=== PATIENT | male | born 1965 | race American Indian/Alaskan Native ===

== ENCOUNTER 2017-09-21 11:54 | Emergency (ER) | payer SELFPAY ==
--- NOTE | 2017-09-21 14:09 | Emergency Department Report ---
ED General Adult HPI - General Chief complaint: High BP Stated complaint: HIGH BP Time Seen by Provider: 09/21/17 14:03 Source: patient Mode of arrival: Ambulatory Limitations: No Limitations - History of Present Illness Initial comments: Patient is a 52-year-old black male past medical history hypertension is been off his meds for approximately 2 months stating he has some mild dizziness this morning he went to a fire station and his blood pressure was 180/102. Patient denies any chest pain shortness of breath or focal neurological complaints at this time. Patient on arrival here in emergency department blood pressure 162/ 104. - Related Data Previous Rx's Medication Instructions Recorded Last Taken Type Lisinopril [Zestril] 10 mg PO DAILY #30 tablet 09/21/17 Unknown Rx Allergies Allergy/AdvReac Type Severity Reaction Status Date / Time No Known Allergies Allergy Unverified 09/21/17 12:00 ED Review of Systems ROS: Stated complaint: HIGH BP Other details as noted in HPI Comment: All other systems reviewed and negative ED Past Medical Hx - Past Medical History Hx Hypertension: Yes - Surgical History Past Surgical History?: No - Social History Smoking Status: Current Every Day Smoker Substance Use Type: None - Medications Home Medications: Home Medications Medication Instructions Recorded Confirmed Last Taken Type Lisinopril [Zestril] 10 mg PO DAILY #30 tablet 09/21/17 Unknown Rx ED Physical Exam - General Limitations: No Limitations General appearance: alert, in no apparent distress - Head Head exam: Present: atraumatic, normocephalic - Eye Eye exam: Present: normal appearance - ENT ENT exam: Present: mucous membranes moist - Neck Neck exam: Present: normal inspection - Respiratory Respiratory exam: Present: normal lung sounds bilaterally. Absent: respiratory distress, wheezes, rales, rhonchi - Cardiovascular Cardiovascular Exam: Present: regular rate, normal rhythm, normal heart sounds. Absent: systolic murmur, diastolic murmur, rubs, gallop - GI/Abdominal GI/Abdominal exam: Present: soft, normal bowel sounds. Absent: distended, tenderness, guarding, rebound - Rectal Rectal exam: Present: deferred - Extremities Exam Extremities exam: Present: normal inspection - Back Exam Back exam: Present: normal inspection - Neurological Exam Neurological exam: Present: alert, oriented X3 - Psychiatric Psychiatric exam: Present: normal affect, normal mood - Skin Skin exam: Present: warm, dry, intact, normal color. Absent: rash ED Course Vital Signs 09/21/17 12:00 Temperature 98.5 F Pulse Rate 80 Respiratory 20 Rate Blood Pressure 162/104 O2 Sat by Pulse 97 Oximetry ED Medical Decision Making - Medical Decision Making Patient is asymptomatic and does not need further workup at this time. Patient given a Catapres here in emergency department be discharged with refills of his lisinopril. Patient was also given referrals outside [facility] for follow- up. Critical care attestation.: If time is entered above; I have spent that time in minutes in the direct care of this critically ill patient, excluding procedure time. ED Disposition Clinical Impression: Hypertensive urgency Disposition: DC-01 TO HOME OR SELFCARE Is pt being admited?: No Does the pt Need Aspirin: No Condition: Stable Instructions: Hypertension (ED) Prescriptions: Lisinopril [Zestril] 10 mg PO DAILY #30 tablet Referrals: [facility] [Outside] - 3-5 Days
[2017-09-21] MEDS ORDERED: CATAPRES PO ONE (14:10)
[2017-09-21 14:20] VITALS: BP 177/115
== END 2017-09-21 14:20 | disposition home or self-care (01) ==
LOC: ED 11:54
DX: I10 Essential (primary) hypertension (principal); F17.200 Nicotine dependence, unspecified, uncomplicated
CPT/HCPCS: 99282